=== PATIENT | female | born 1980 | race Hispanic/Latino ===

== ENCOUNTER 2024-07-12 19:37 | Inpatient (IN) | payer SELFPAY ==
[~2024-07-12] VITALS: Ht 165.1 cm; Wt 50.3 kg
[2024-07-12] MEDS: SODIUM CHLORIDE 0.9% 1000ML 1,000 ML IV ONE ×2 (20:23→21:22)
[2024-07-12 20:40] LABS: BASOPHILS # (AUTO) 0.2 (0.0-0.1); HEMATOCRIT 47.8 % (34.2-44.1); HEMOGLOBIN 14.4 g/dL (12.0-16.0); LYMPHOCYTES # (AUTO) 3.2 (1.0-3.2); LYMPHOCYTES % 16.2 % (18.0-39.1); MEAN CORPUSCULAR HGB CONC 30.1 g/dL (31-35); MEAN CORPUSCULAR VOLUME 102.8 fL (81-99); MONOCYTES # (AUTO) 0.9 (0.2-0.8); MONOCYTES % 4.3 % (4.4-11.3); NEUTROPHILS % 74.7 % (38.7-80.0); PLATELET COUNT 359 x10e3/uL (140-360); RED BLOOD COUNT 4.65 x10e6/uL (3.6-5.1); RED CELL DISTRIBUTION WIDTH 13.2 % (11.7-14.4); WHITE BLOOD COUNT 20.03 x10e3/uL (4.8-10.8)
[2024-07-12 20:53] LABS: ABG PCO2 5 mmHg (35-45); ABG PH 6.94 (7.35-7.45); ABG PO2 177 mmHg (80-105)
[2024-07-12 20:58] LABS: ALANINE AMINOTRANSFERASE 22 IU/L (0-55); ALBUMIN 4.3 g/dL (3.5-5.0); ALBUMIN/GLOBULIN RATIO 0.8 (0.8-2.0); ALKALINE PHOSPHATASE 98 IU/L (40-150); BILIRUBIN,TOTAL 0.3 mg/dL (0.2-1.2); BLOOD UREA NITROGEN 14 mg/dL (7-26); BUN/CREATININE RATIO 8 (6-25); CALCIUM 8.5 mg/dL (8.4-10.2); CHLORIDE 107 mmol/L (98-107); CREATINE KINASE 54 IU/L (29-168); CREATININE, SERUM 1.69 mg/dL (0.57-1.11); EST GLOMERULAR FILTRATION RATE 38 ML/MIN (>=60); SODIUM 135 mmol/L (136-145)
[2024-07-12 21:00] VITALS: TEMP 96.1
[2024-07-12 21:03] LABS: TROPONIN I 0.011 ng/mL (0-0.300)
[2024-07-12 21:07] LABS: INFLUENZAE A&B ANTIGEN (RAPID) NEGATIVE (NEGATIVE); RESPIRATORY SYNC. VIRUS NEGATIVE (NEGATIVE)
[2024-07-12 21:09] LABS: CARBON DIOXIDE < 5 mmol/L (22-29); GLUCOSE 559 mg/dL (74-118)
[2024-07-12] MEDS ORDERED: MAGNESIUM SULF 1GRAM/DEXTROSE 100 ML IV PRN (21:30)
[2024-07-12] MEDS ORDERED: ONDANSETRON HCL INJ 2MG/ML 2ML 2 MG/ML VIAL IV PRN (21:30)
[2024-07-12] MEDS ORDERED: POTASSIUM CHLORIDE 20MEQ/100ML 200 ML IV PRN (21:30)
[2024-07-12] MEDS: INSULIN REGULAR, HUMAN 3ML VL 100 UNIT in SODIUM CHLORIDE 0.9% 100 ML IV SCH (21:57)
[2024-07-12] MEDS: MUPIROCIN 2% OINT 22 GM TUBE TOP SCH (21:58)
[2024-07-12] MEDS: SODIUM CHLORIDE 0.9% 1000ML 1,000 ML IV SCH (21:58)
[2024-07-12] MEDS ORDERED: FAMOTIDINE 20 MG TAB PO PRN (22:00)
[2024-07-12] MEDS ORDERED: ACETAMINOPHEN 325 MG TAB PO PRN (22:00)
[2024-07-12] MEDS ORDERED: MELATONIN 5 MG TABLET PO PRN (22:00)
[2024-07-12] MEDS ORDERED: ONDANSETRON HCL 4 MG ORAL DISINTEGRATING TAB PO PRN (22:00)
[2024-07-12 22:17] VITALS: PULSE 106; RESP 30
[2024-07-13] VITALS (85 sets, daily range): BP systolic 86–129; BP diastolic 58–95; PULSE 101–126; RESP 20–41; TEMP 96.8–99.3; O2SAT 92–100
[2024-07-13 02:23] LABS: BLOOD UREA NITROGEN 14 mg/dL (7-26); BUN/CREATININE RATIO 11 (6-25); CALCIUM 7.6 mg/dL (8.4-10.2); CHLORIDE 119 mmol/L (98-107); CREATININE, SERUM 1.28 mg/dL (0.57-1.11); EST GLOMERULAR FILTRATION RATE 53 ML/MIN (>=60); GLUCOSE 358 mg/dL (74-118); MAGNESIUM 1.8 MG/DL (1.3-2.1); SODIUM 141 mmol/L (136-145)
[2024-07-13 02:25] LABS: ANION GAP 20.4 mmol/L (8-16); POTASSIUM 3.4 mmol/L (3.5-5.1)
[2024-07-13 02:26] LABS: CARBON DIOXIDE < 5 mmol/L (22-29)
[2024-07-13] MEDS: DEXTROSE 5%/0.45% SOD CHL 1,000 ML IV SCH (05:56)
[2024-07-13 07:48] LABS: ANION GAP 19.5 mmol/L (8-16); CALCIUM 7.3 mg/dL (8.4-10.2); CREATININE, SERUM 1.04 mg/dL (0.57-1.11); MAGNESIUM 1.4 MG/DL (1.3-2.1); POTASSIUM 3.5 mmol/L (3.5-5.1)
[2024-07-13 09:34] LABS: BASOPHILS # (AUTO) 0.1 (0.0-0.1); BASOPHILS % 0.4 % (0.0-1.0); HEMATOCRIT 42.9 % (34.2-44.1); HEMOGLOBIN 13.1 g/dL (12.0-16.0); LYMPHOCYTES # (AUTO) 1.2 (1.0-3.2); LYMPHOCYTES % 5.7 % (18.0-39.1); MEAN CORPUSCULAR HGB CONC 30.5 g/dL (31-35); MEAN CORPUSCULAR VOLUME 101.4 fL (81-99); MONOCYTES # (AUTO) 1.9 (0.2-0.8); NEUTROPHILS # (AUTO) 17.1 (2.1-6.9); NEUTROPHILS % 82.9 % (38.7-80.0); PLATELET COUNT 269 x10e3/uL (140-360); RED BLOOD COUNT 4.23 x10e6/uL (3.6-5.1); RED CELL DISTRIBUTION WIDTH 13.2 % (11.7-14.4)
[2024-07-13 10:29] LABS: CLARITY,URINE CLEAR (CLEAR); COLOR,URINE YELLOW (YELLOW); LEUKOCYTE ESTERASE ,URINE NEGATIVE (NEGATIVE); NITRITE,URINE NEGATIVE (NEGATIVE); PH,URINE 5.5 (5 - 7); PROTEIN,URINE DIPSTICK NEGATIVE (NEGATIVE)
[2024-07-13 10:30] LABS: BILIRUBIN,URINE NEGATIVE (NEGATIVE); GLUCOSE, URINE 1+ (NEGATIVE); KETONES,URINE 2+ (NEGATIVE); URINE UROBILINOGEN 0.2 mg/dL (0.2 - 1)
[2024-07-13 10:38] LABS: CHOL/HDL RATIO 2.9 (3.0-3.6)
[2024-07-13 10:42] LABS: BACTERIA,URINE FEW /HPF
[2024-07-13 10:49] LABS: EPITHELIAL CELLS,URINE FEW /LPF; RBC,URINE 0-5 /HPF (0-5)
[2024-07-13 11:19] LABS: BAND NEUTROPHILS % (MANUAL) 4 %; LYMPHOCYTES % (MANUAL) 9 % (19-48); MONOCYTES % (MANUAL) 6 % (3.4-9.0); NEUTROPHILS % (MANUAL) 81 % (40-74)
[2024-07-13 11:21] LABS: PLATELET ESTIMATE ADEQUATE; PLATELET MORPHOLOGY COMMENT FEW LARGE
[2024-07-13 11:26] LABS: RBC MORPHOLOGY COMMENT NORMAL
[2024-07-13 12:31] LABS: ANION GAP 15.8 mmol/L (8-16); CALCIUM 7.1 mg/dL (8.4-10.2); CREATININE, SERUM 1.01 mg/dL (0.57-1.11); MAGNESIUM 1.3 MG/DL (1.3-2.1)
[2024-07-13 12:38] LABS: POTASSIUM 2.8 mmol/L (3.5-5.1)
[2024-07-13] MEDS: MAGNESIUM SULF 1GRAM/DEXTROSE 100 ML IV PRN (12:56)
[2024-07-13] MEDS: POTASSIUM CHLORIDE 20MEQ/100ML 200 ML IV PRN (12:56)
[2024-07-13 13:03] LABS: THYROID STIMULATING HORMONE 15.721 uIU/mL (0.350-4.940)
[2024-07-13] MEDS: POTASSIUM CHLORIDE 20 MEQ TAB CR PO ONE (15:59)
[2024-07-13 16:45] LABS: ANION GAP 13.9 mmol/L (8-16); CALCIUM 7.3 mg/dL (8.4-10.2); CREATININE, SERUM 0.97 mg/dL (0.57-1.11); MAGNESIUM 1.9 MG/DL (1.3-2.1)
[2024-07-13 16:51] LABS: POTASSIUM 2.9 mmol/L (3.5-5.1)
[2024-07-13 20:57] LABS: ANION GAP 12.8 mmol/L (8-16); CALCIUM 7.4 mg/dL (8.4-10.2); CREATININE, SERUM 0.8 mg/dL (0.57-1.11); MAGNESIUM 1.7 MG/DL (1.3-2.1)
[2024-07-13 20:59] LABS: POTASSIUM 2.8 mmol/L (3.5-5.1)
[2024-07-13] MEDS: POTASSIUM CHLORIDE 20MEQ/100ML 200 ML ONE (21:13)
[2024-07-14] VITALS (46 sets, daily range): BP systolic 82–111; BP diastolic 62–90; PULSE 83–118; RESP 15–35; TEMP 97.3–99.1; O2SAT 94–100
[2024-07-14 03:38] LABS: ANION GAP 12.9 mmol/L (8-16); CALCIUM 7.3 mg/dL (8.4-10.2); CREATININE, SERUM 0.81 mg/dL (0.57-1.11); MAGNESIUM 1.7 MG/DL (1.3-2.1); POTASSIUM 3.9 mmol/L (3.5-5.1)
[2024-07-14] MEDS: MAGNESIUM SULF 1GRAM/DEXTROSE 100 ML IV ONE (04:12)
[2024-07-14 06:40] LABS: BASOPHILS % 0.3 % (0.0-1.0); HEMATOCRIT 44.9 % (34.2-44.1); HEMOGLOBIN 15.1 g/dL (12.0-16.0); LYMPHOCYTES # (AUTO) 1.4 (1.0-3.2); MEAN CORPUSCULAR HEMOGLOBIN 31.4 pg (28-32); MEAN CORPUSCULAR HGB CONC 33.6 g/dL (31-35); MEAN CORPUSCULAR VOLUME 93.3 fL (81-99); MONOCYTES # (AUTO) 1.2 (0.2-0.8); MONOCYTES % 8.5 % (4.4-11.3); NEUTROPHILS # (AUTO) 11.5 (2.1-6.9); NEUTROPHILS % 80.6 % (38.7-80.0); PLATELET COUNT 234 x10e3/uL (140-360); RED BLOOD COUNT 4.81 x10e6/uL (3.6-5.1); RED CELL DISTRIBUTION WIDTH 12.9 % (11.7-14.4); WHITE BLOOD COUNT 14.32 x10e3/uL (4.8-10.8)
[2024-07-14 07:10] LABS: ANION GAP 11.7 mmol/L (8-16); CALCIUM 7.2 mg/dL (8.4-10.2); CREATININE, SERUM 0.74 mg/dL (0.57-1.11); MAGNESIUM 2.1 MG/DL (1.3-2.1); POTASSIUM 3.7 mmol/L (3.5-5.1)
[2024-07-14] MEDS ORDERED: GLIMEPIRIDE2 MG PO (10:59)
[2024-07-14] MEDS ORDERED: TRADJENTA5 MG PO (10:59)
[2024-07-14] MEDS ORDERED: LIPITOR20 MG PO (10:59)
[2024-07-14] MEDS ORDERED: METFORMIN HCL500 MG PO (10:59)
[2024-07-14 11:00] LABS: CALCIUM 7.2 mg/dL (8.4-10.2); CREATININE, SERUM 0.84 mg/dL (0.57-1.11); MAGNESIUM 2.1 MG/DL (1.3-2.1)
[2024-07-14] MEDS ORDERED: DEXTROSE 50% SYRINGE 50 ML IV PRN (13:45)
[2024-07-14] MEDS: DEXTROSE 5%/0.45% SOD CHL 1,000 ML IV SCH (15:15)
[2024-07-14] MEDS: INSULIN REGULAR, HUMAN 3ML VL 100 UNIT in SODIUM CHLORIDE 0.9% 100 ML IV PRN (15:17)
[2024-07-14 16:01] LABS: ANION GAP 10.6 mmol/L (8-16); CALCIUM 7.5 mg/dL (8.4-10.2); CREATININE, SERUM 0.91 mg/dL (0.57-1.11); MAGNESIUM 2.1 MG/DL (1.3-2.1); POTASSIUM 3.6 mmol/L (3.5-5.1)
[2024-07-14 16:34] LABS: FREE T4 (FREE THYROXINE) 0.44 ng/dL (0.8-1.8)
[2024-07-14] MEDS: METOCLOPRAMIDE HCL 10 MG/2ML VIAL IV SCH (18:23)
[2024-07-14] MEDS: INSULIN GLARGINE 100 UNITS/ML VIAL SQ SCH (21:23)
[2024-07-15] VITALS (44 sets, daily range): BP systolic 79–117; BP diastolic 57–89; PULSE 73–111; RESP 12–32; TEMP 96.8–98.3; O2SAT 96–100
[2024-07-15 06:51] LABS: BASOPHILS % 0.5 % (0.0-1.0); LYMPHOCYTES # (AUTO) 2.2 (1.0-3.2); LYMPHOCYTES % 25.2 % (18.0-39.1); MEAN CORPUSCULAR HEMOGLOBIN 30.7 pg (28-32); MEAN CORPUSCULAR HGB CONC 34.2 g/dL (31-35); MEAN CORPUSCULAR VOLUME 89.8 fL (81-99); MONOCYTES # (AUTO) 0.9 (0.2-0.8); MONOCYTES % 10.1 % (4.4-11.3); NEUTROPHILS # (AUTO) 5.6 (2.1-6.9); NEUTROPHILS % 63.7 % (38.7-80.0); PLATELET COUNT 271 x10e3/uL (140-360); RED BLOOD COUNT 4.23 x10e6/uL (3.6-5.1); RED CELL DISTRIBUTION WIDTH 13.2 % (11.7-14.4); WHITE BLOOD COUNT 8.77 x10e3/uL (4.8-10.8)
[2024-07-15 08:42] LABS: CALCIUM 7.8 mg/dL (8.4-10.2); CREATININE, SERUM 0.89 mg/dL (0.57-1.11); MAGNESIUM 1.9 MG/DL (1.3-2.1)
[2024-07-15] MEDS ORDERED: INSULIN LISPRO 100 UNIT/1 ML 3ML VIAL SQ SCH (14:00)
[2024-07-15] MEDS: INSULIN LISPRO 100 UNIT/1 ML 3ML VIAL SQ SCH ×2 (16:29)
[2024-07-15] MEDS: INSULIN GLARGINE 100 UNITS/ML VIAL SQ SCH (21:11)
[2024-07-16] VITALS (8 sets, daily range): BP systolic 94–117; BP diastolic 76–90; PULSE 84–103; RESP 16–19; TEMP 97.3–98.4; O2SAT 98–100
[2024-07-16 07:37] LABS: BASOPHILS # (AUTO) 0.1 (0.0-0.1); BASOPHILS % 0.8 % (0.0-1.0); HEMATOCRIT 33.8 % (34.2-44.1); HEMOGLOBIN 11.4 g/dL (12.0-16.0); LYMPHOCYTES # (AUTO) 2.5 (1.0-3.2); LYMPHOCYTES % 40.6 % (18.0-39.1); MEAN CORPUSCULAR HEMOGLOBIN 31.2 pg (28-32); MEAN CORPUSCULAR HGB CONC 33.7 g/dL (31-35); MEAN CORPUSCULAR VOLUME 92.6 fL (81-99); MONOCYTES # (AUTO) 0.5 (0.2-0.8); MONOCYTES % 7.9 % (4.4-11.3); NEUTROPHILS # (AUTO) 3.1 (2.1-6.9); NEUTROPHILS % 50.2 % (38.7-80.0); PLATELET COUNT 232 x10e3/uL (140-360); RED BLOOD COUNT 3.65 x10e6/uL (3.6-5.1); RED CELL DISTRIBUTION WIDTH 13.9 % (11.7-14.4); WHITE BLOOD COUNT 6.18 x10e3/uL (4.8-10.8)
[2024-07-16 08:00] LABS: ANION GAP 10.1 mmol/L (8-16); CALCIUM 7.5 mg/dL (8.4-10.2); CREATININE, SERUM 0.86 mg/dL (0.57-1.11)
[2024-07-16] MEDS ORDERED: PNEUMOCOCCAL VACCINE POLYVALENT 23 MCG/0.5 ML VIAL IM SCH ×2 (08:00→20:00)
[2024-07-16 08:02] LABS: POTASSIUM 3.1 mmol/L (3.5-5.1)
[2024-07-16] MEDS: SODIUM CHLORIDE 0.9% 1000ML 1,000 ML IV SCH (09:59)
[2024-07-16] MEDS: POTASSIUM CHLORIDE 10MEQ EA PO ONE ×2 (10:06→17:31)
[2024-07-16] MEDS: SODIUM CHLORIDE 0.9% 500ML 500 ML IV ONE (10:06)
[2024-07-16] MEDS: MUPIROCIN 2% OINT 22 GM TUBE TOP SCH (10:14)
[2024-07-16 14:42] LABS: ANION GAP 15.4 mmol/L (8-16); BLOOD UREA NITROGEN < 5 mg/dL (7-26); CARBON DIOXIDE 11 mmol/L (22-29); CHLORIDE 118 mmol/L (98-107); CREATININE, SERUM 0.91 mg/dL (0.57-1.11); EST GLOMERULAR FILTRATION RATE 80 ML/MIN (>=60); GLUCOSE 218 mg/dL (74-118); SODIUM 141 mmol/L (136-145)
[2024-07-16 14:43] LABS: BUN/CREATININE RATIO 5 (6-25); POTASSIUM 3.4 mmol/L (3.5-5.1)
[2024-07-16 15:03] LABS: CALCIUM 8.4 mg/dL (8.4-10.2)
[2024-07-16] MEDS: INSULIN LISPRO 100 UNIT/1 ML 3ML VIAL SQ SCH (17:33)
[2024-07-16] MEDS: INSULIN GLARGINE 100 UNITS/ML VIAL SQ SCH (20:39)
[2024-07-17] VITALS: BP 117/91; PULSE 96; RESP 18; TEMP 98.6; O2SAT 98
[2024-07-17 04:00] VITALS: BP 118/94; PULSE 91; RESP 18; TEMP 97.8; O2SAT 99
[2024-07-17 05:41] LABS: BASOPHILS % 0.5 % (0.0-1.0); HEMATOCRIT 32.2 % (34.2-44.1); HEMOGLOBIN 10.8 g/dL (12.0-16.0); LYMPHOCYTES # (AUTO) 2.5 (1.0-3.2); LYMPHOCYTES % 44.2 % (18.0-39.1); MEAN CORPUSCULAR HEMOGLOBIN 31.5 pg (28-32); MEAN CORPUSCULAR HGB CONC 33.5 g/dL (31-35); MEAN CORPUSCULAR VOLUME 93.9 fL (81-99); MONOCYTES # (AUTO) 0.4 (0.2-0.8); MONOCYTES % 6.5 % (4.4-11.3); NEUTROPHILS # (AUTO) 2.7 (2.1-6.9); NEUTROPHILS % 48.4 % (38.7-80.0); PLATELET COUNT 232 x10e3/uL (140-360); RED BLOOD COUNT 3.43 x10e6/uL (3.6-5.1); RED CELL DISTRIBUTION WIDTH 13.8 % (11.7-14.4); WHITE BLOOD COUNT 5.66 x10e3/uL (4.8-10.8)
[2024-07-17 06:25] LABS: ALBUMIN 2.4 g/dL (3.5-5.0); ALBUMIN/GLOBULIN RATIO 0.7 (0.8-2.0); ANION GAP 9.6 mmol/L (8-16); BILIRUBIN,TOTAL 0.3 mg/dL (0.2-1.2); CALCIUM 7.6 mg/dL (8.4-10.2); CREATININE, SERUM 0.78 mg/dL (0.57-1.11); MAGNESIUM 1.6 MG/DL (1.3-2.1); POTASSIUM 3.6 mmol/L (3.5-5.1); TOTAL PROTEIN 5.8 g/dL (6.5-8.1)
[2024-07-17 08:00] VITALS: BP 118/94; PULSE 91; RESP 18; TEMP 97.8; O2SAT 99
[2024-07-17] MEDS: POTASSIUM CHLORIDE 10MEQ EA PO ONE (09:24)
[2024-07-17] MEDS: MAGNESIUM SULFATE 2GM/50ML 50 ML IV ONE (09:24)
[2024-07-17 09:34] VITALS: BP 112/80; PULSE 87; RESP 18; TEMP 98.7; O2SAT 98
[2024-07-17 12:30] VITALS: BP 151/107; PULSE 92; RESP 18; TEMP 98.6; O2SAT 99
[2024-07-17 15:29] LABS: ANION GAP 10.7 mmol/L (8-16); CALCIUM 7.9 mg/dL (8.4-10.2); CREATININE, SERUM 0.73 mg/dL (0.57-1.11); POTASSIUM 3.7 mmol/L (3.5-5.1)
[2024-07-17] MEDS ORDERED: LANTUS 3ML100 UNITS/ SC (16:21)
[2024-07-17] MEDS ORDERED: INSULIN LI100 UNIT/1 SC (16:21)
[2024-07-17] MEDS ORDERED: INSULIN PEN NE1 EAC1 SC (16:21)
[2024-07-17] MEDS ORDERED: INSULIN SYRING1 EA53 SC (16:21)
[2024-07-17 16:55] VITALS: BP 129/95; PULSE 92; RESP 15; TEMP 98.2; O2SAT 100
== END 2024-07-17 17:47 | disposition home or self-care (01) | DRG 638 ==
LOC: ER 19:41 → ERHOLD 21:30 → ICU 23:43 → MED/SURG 07-16 00:55
PROVIDERS: ADMIT Family Medicine Adult Medicine; ATTEND Family Medicine Adult Medicine
DX: E11.10 Type 2 diabetes mellitus with ketoacidosis without coma (principal); N17.9 Acute kidney failure, unspecified; E11.65 Type 2 diabetes mellitus with hyperglycemia; Z79.4 Long term (current) use of insulin; E03.9 Hypothyroidism, unspecified; D72.829 Elevated white blood cell count, unspecified; E86.0 Dehydration; I10 Essential (primary) hypertension
CPT/HCPCS: 36415; 36600; 71045; 80048; 80053; 80061; 81001; 82550; 82805; 82948; 83036; 83605; 83690; 83735; 84439; 84443; 84478; 84480; 84484; 84702; 85025; 87040; 87086; 87400; 87420; 93005; 94799; 96372; 99252; 99284; J0696; J1815; J2765; J3475; J3480; J7030; J7050; U0002